=== PATIENT | male | born 1970 | race Caucasian/White ===

== ENCOUNTER 2019-02-15 13:15 | Emergency (ER) | payer OTHER ==
[~2019-02-15] VITALS: Ht 182.9 cm; Wt 90.7 kg
--- NOTE | 2019-02-15 13:20 | NUR ---
ED Nurse Note: Patient walked in to ER c/o abdominal pain which starts from medial and radiates to LLQ 5/10 and N/V since last night. pt aao x4 and ambulatory. skin clean and intact. calm and cooperative. pt is in gown and on hall monitor.
[2019-02-15] MEDS ORDERED: NKM (13:21)
[2019-02-15 13:24] VITALS: BP 152/95
[2019-02-15] MEDS ORDERED: Mylanta II UD 30ml ORAL ONE (13:45)
[2019-02-15] MEDS ORDERED: Dicyclomine HCl 10mg/5ml oral soln ORAL ONE (13:45)
[2019-02-15] MEDS ORDERED: Lidocaine 2% Visc 15ml soln ORAL ONE (13:45)
[2019-02-15 14:30] LABS: APPEARANCE,URINE CLEAR; BILIRUBIN, URINE NEGATIVE (NEGATIVE); COLOR,URINE PALE YELLOW; GLUCOSE, URINE (UA) 4+ (NEGATIVE); KETONES,URINE 3+ (NEGATIVE); LEUKOCYTE ESTERASE ,URINE NEGATIVE (NEGATIVE); NITRITE,URINE NEGATIVE (NEGATIVE); PH,URINE 5 (4.5-8.0); PROTEIN,URINE 1+ (NEGATIVE); UROBILINOGEN,URINE NORMAL MG/DL (0.0-1.0)
[2019-02-15 14:44] LABS: BASOPHILS % (AUTO) 0.4 % (0.0-2.0); EOSINOPHILS % (AUTO) 0.8 % (0.0-3.0); LYMPHOCYTES % (AUTO) 11.6 % (20.0-45.0); MONOCYTES % (AUTO) 2.9 % (1.0-10.0); NEUTROPHILS % (AUTO) 84.2 % (45.0-75.0); PLATELET COUNT 221 K/UL (150-450); RED CELL DISTRIBUTION WIDTH 11.8 % (11.6-14.8); WHITE BLOOD COUNT 14.6 K/UL (4.8-10.8)
[2019-02-15 14:50] LABS: HEMOGLOBIN 18.7 G/DL (14.2-18.0); RED BLOOD COUNT 6.16 M/UL (4.70-6.10)
[2019-02-15 14:51] LABS: HEMATOCRIT 56.3 % (42.0-52.0); MEAN CORPUSCULAR VOLUME 92 FL (80-99)
--- NOTE | 2019-02-15 14:55 | NUR ---
ED Nurse Note: Critical lab result Hgb 18.[address] Vazquez and Dr. Hernandez.
[2019-02-15] MEDS ORDERED: Isovue-300 100ml vial INJ PRN (15:00)
--- NOTE | 2019-02-15 15:00 | NUR ---
ED Nurse Note: Dr. Hernandez at bedside.
[2019-02-15 15:24] VITALS: BP 146/86
--- NOTE | 2019-02-15 15:51 | NUR ---
ED Nurse Note: Chemistry was redrawn and sent to the lab.
--- NOTE | 2019-02-15 16:00 | Emergency Room Report ---
History of Present Illness General Chief Complaint: Abdominal Pain Source: Patient Present Illness HPI 48-year-old male presents ED for evaluation. Complaining of abdominal pain with nausea and vomiting since yesterday. Pain is epigastric, sharp, 8 out of 10, radiating to lower abdomen. Denies fevers or chills. Denies chest pain. Denies any diarrhea. States he does have a history of ulcers. Denies alcohol use. No other aggravating relieving factors. Denies any other associated symptoms Allergies: Coded Allergies: No Known Allergies (Unverified , 02/15/19) Patient History Past Medical History: none Past Surgical History: none Pertinent Family History: none Social History: Denies: smoking, alcohol use, drug use Immunizations: UTD Reviewed Nursing Documentation: PMH: Agreed; PSxH: Agreed Nursing Documentation-PMH Past Medical History: No Stated History Review of Systems All Other Systems: negative except mentioned in HPI Physical Exam Vital Signs Date Time Temp Pulse Resp B/P (MAP) Pulse Ox O2 Delivery O2 Flow Rate FiO2 02/15/19 13:18 98.4 106 18 152/95 (114) 94 Room Air Sp02 EP Interpretation: reviewed, normal General Appearance: no apparent distress, alert, GCS 15, non-toxic Head: normocephalic, atraumatic Eyes: bilateral eye normal inspection, bilateral eye PERRL ENT: hearing grossly normal, normal pharynx, no angioedema, normal voice Neck: full range of motion, supple/symm/no masses Respiratory: chest non-tender, lungs clear, normal breath sounds, speaking full sentences Cardiovascular #1: regular rate, rhythm, no edema Cardiovascular #2: 2+ carotid (R), 2+ carotid (L), 2+ radial (R), 2+ radial (L) , 2+ dorsalis pedis (R), 2+ dorsalis pedis (L) Gastrointestinal: normal bowel sounds, soft, non-distended, no rebound, guarding, tenderness Rectal: deferred Genitourinary: normal inspection, no CVA tenderness Musculoskeletal: back normal, gait/station normal, normal range of motion, non- tender Neurologic: alert, oriented x3, responsive, motor strength/tone normal, sensory intact, speech normal Psychiatric: judgement/insight normal, memory normal, mood/affect normal, no suicidal/homicidal ideation Reflexes: 3+ bicep (R), 3+ bicep (L), 3+ tricep (R), 3+ tricep (L), 3+ knee (R) , 3+ knee (L) Lymphatic: no adenopathy Medical Decision Making Diagnostic Impression: Primary Impression: Pancreatitis Qualified Codes: K85.90 - Acute pancreatitis without necrosis or infection, unspecified ER Course Hospital Course 48-year-old male presents to ED with abdominal pain Differential diagnoses include: BPH, cystitis, pyelonephritis, kidney stone Clinical course Patient placed on stretcher. color television console monitor. After initial history and physical I ordered labs, IV fluids, UA, pain medication and CT scan Labs - noted leukocytosis, Hb/Hct elevated. electrolytes ok. Lipase > 1800 CT abdomen and pelvis - pancreatitis + ? diverticulitis discussed findings with patient. Admission recommended however patient states he wants to leave. Patient states he wishes to go home. Understands the risks of leaving. Patient has competency to make his own decisions. Signed AMA form. I feel this is a highly complex case requiring extensive working including EKG/ Rhythm strip, Xray/CT/US, Blood/urine lab work, repeat exams while in ED, and administration of strong opiates/narcotics for pain control, admission to hospital or close patient follow up. Diagnosis - pancreatitis patient left AMA Labs Test 02/15/19 13:44 02/15/19 14:10 02/15/19 15:50 White Blood Count 14.6 K/UL (4.8-10.8) Red Blood Count 6.16 M/UL (4.70-6.10) Hemoglobin 18.7 G/DL (14.2-18.0) Hematocrit 56.3 % (42.0-52.0) Mean Corpuscular Volume 92 FL (80-99) Mean Corpuscular Hemoglobin 32.0 PG (27.0-31.0) Mean Corpuscular Hemoglobin Concent 35.0 G/DL (32.0-36.0) Red Cell Distribution Width 11.8 % (11.6-14.8) Platelet Count 221 K/UL (150-450) Mean Platelet Volume 9.2 FL (6.5-10.1) Neutrophils (%) (Auto) 84.2 % (45.0-75.0) Lymphocytes (%) (Auto) 11.6 % (20.0-45.0) Monocytes (%) (Auto) 2.9 % (1.0-10.0) Eosinophils (%) (Auto) 0.8 % (0.0-3.0) Basophils (%) (Auto) 0.4 % (0.0-2.0) Urine Color Pale yellow Urine Appearance Clear Urine pH 5 (4.5-8.0) Urine Specific Daphne 1.015 (1.005-1.035) Urine Protein 1+ (NEGATIVE) Urine Glucose (UA) 4+ (NEGATIVE) Urine Ketones 3+ (NEGATIVE) Urine Blood Negative (NEGATIVE) Urine Nitrite Negative (NEGATIVE) Urine Bilirubin Negative (NEGATIVE) Urine Urobilinogen Normal MG/DL (0.0-1.0) Urine Leukocyte Esterase Negative (NEGATIVE) Urine RBC 0 /HPF (0 - 0) Urine WBC 0-2 /HPF (0 - 0) Urine Squamous Epithelial Cells Occasional /LPF Urine Bacteria Occasional /HPF (NONE) Urine Fine Granular Casts 0-2 /LPF (NONE) Sodium Level 130 MMOL/L (136-145) Potassium Level 4.1 MMOL/L (3.5-5.1) Chloride Level 95 MMOL/L (98-107) Carbon Dioxide Level 21 MMOL/L (21-32) Anion Gap 15 mmol/L (5-15) Blood Urea Nitrogen 11 mg/dL (7-18) Creatinine 0.8 MG/DL (0.55-1.30) Estimat Glomerular Filtration Rate > 60 mL/min (>60) Glucose Level 350 MG/DL (74-106) Calcium Level 7.0 MG/DL (8.5-10.1) Total Bilirubin 1.1 MG/DL (0.2-1.0) Direct Bilirubin 0.0 MG/DL (0.0-0.3) Aspartate Amino Transf (AST/SGOT) 6 U/L (15-37) Alanine Aminotransferase (ALT/SGPT) < 6 U/L (12-78) Alkaline Phosphatase 90 U/L (46-116) Total Protein 7.0 G/DL (6.4-8.2) Albumin 3.4 G/DL (3.4-5.0) Globulin 3.6 g/dL Albumin/Globulin Ratio 0.9 (1.0-2.7) Lipase 1907 U/L (73-393) CT/MRI/US Diagnostic Results CT/MRI/US Diagnostic Results : Imaging Test Ordered: CT Head Impression Impression: Inflammatory changes in the left upper quadrant. Main differential considerations include pancreatitis of the pancreatic tail, and acute diverticulitis. Slight swelling of the pancreatic tail, lack of definite diverticula, and distribution of phlegmon is more suggestive of the former, but diverticulitis due to occult diverticular disease is certainly possible. Correlate with clinical and laboratory findings. Last Vital Signs Date Time Temp Pulse Resp B/P (MAP) Pulse Ox O2 Delivery O2 Flow Rate FiO2 02/15/19 15:24 98.6 95 28 146/86 100 Room Air Status: unchanged Disposition: AGAINST MEDICAL ADVICE Condition: Stable Scripts Hydrocodone Bit/Acetaminophen 5-325* (NORCO 5-325*) 1 Each Tablet 1 TAB ORAL Q6H PRN for For Pain, #20 TAB 0 Refills Prov: Neeraj Hernandez MD 02/15/19 Referrals: [facility],REFERRING (PCP) Oscar Vazquez MD Feb 15, 2019 16:00
--- NOTE | 2019-02-15 16:18 | NUR ---
ED Nurse Note: pt ambulated to bathroom with steady gait.
[2019-02-15 16:30] LABS: ANION GAP 15 mmol/L (5-15); BLOOD UREA NITROGEN 11 mg/dL (7-18); CARBON DIOXIDE 21 MMOL/L (21-32); CHLORIDE 95 MMOL/L (98-107); CREATININE 0.8 MG/DL (0.55-1.30); POTASSIUM 4.1 MMOL/L (3.5-5.1); SODIUM 130 MMOL/L (136-145)
--- NOTE | 2019-02-15 16:38 | NUR ---
ED Nurse Note: pt went down for CT scan in stable condition.
[2019-02-15 16:40] LABS: ALANINE AMINOTRANSFERASE < 6 U/L (12-78); ALBUMIN 3.4 G/DL (3.4-5.0); BILIRUBIN,TOTAL 1.1 MG/DL (0.2-1.0)
--- NOTE | 2019-02-15 16:53 | NUR ---
ED Nurse Note: pt came back from CT in stable condition.
--- NOTE | 2019-02-15 17:13 | NUR ---
ED Nurse Note: [facility] CALLED FOR PT REPORT. REPORT GIVEN TO CHARLES CHARGE NURSE. PER CHARGE, RN NEEDS 10 MINUTES BEFORE ACCEPTING PT. WILL TRANSPORT PT AT THAT TIME.
[2019-02-15 17:15] VITALS: BP 132/84
--- NOTE | 2019-02-15 17:18 | NUR ---
ED Nurse Note: PT DOES NOT WISH TO BE ADMITTED. WILL AWAIT RESULTS OF CT BEFORE DECIDING ON LEAVING AMA OR GETTING ADMITTED. [facility] UPDATED.
[2019-02-15 17:19] LABS: ALKALINE PHOSPHATASE 90 U/L (46-116); ASPARTATE AMINO TRANSFERASE 6 U/L (15-37)
[2019-02-15 17:20] LABS: ALBUMIN/GLOBULIN RATIO 0.9 (1.0-2.7)
[2019-02-15] MEDS ORDERED: NORCO 5-325 TA1 EACH ORAL (17:27)
--- NOTE | 2019-02-15 17:27 | Diagnostic Imaging Report ---
Clinical Indication: Abdominal pain which starts from medial and radiates to the left lower quadrant, 5 out of 10, nausea vomiting since the previous night Technique: No oral contrast utilized, per emergency room physician request IV administration nonionic contrast. Venous phase spiral acquisition obtained through the abdomen and pelvis. Multiplanar reconstructions were generated. Total dose length product 692.84 mGycm. CTDIvol(s) 12.1 mGy. Dose reduction achieved using automated exposure control Comparison: none Findings: Inflammatory changes are seen in the left upper quadrant, adjacent to the pancreatic tail and also adjacent to the splenic flexure and proximal descending colon. There are questionably small colonic diverticula in the area, and there is slight wall thickening of the distal splenic flexure. There is slight swelling of the pancreatic tail and equivocal slight lower attenuation of the pancreatic tail as compared to the head and body. Phlegmon is seen tracking caudad along the anterior Gerota's fascia and in the anterior pararenal space. No definite diverticula are identified. No discrete well-defined fluid collections are demonstrated. While the pancreatic tail is slightly lower in attenuation, it nonetheless definitely enhances. No focal parenchymal abnormality demonstrated. A very thin blind ending linear structure occupies the gallbladder fossa. This could conceivably represent a very contracted gallbladder. There is no biliary ductal dilatation. The liver is mildly hypoattenuating. No focal hepatic abnormality demonstrated. The spleen, adrenals, kidneys are all unremarkable. No retroperitoneal or mesenteric mass or adenopathy demonstrated. No renal or ureteral calculi. The bladder is empty, unremarkable. No pelvic mass or adenopathy. The appendix is normal. As mentioned earlier, there are equivocally small colonic diverticula. No small bowel distention. No free intraperitoneal gas. The distal esophagus, stomach, duodenum are unremarkable. The included lung bases demonstrate slight groundglass opacity. The bones are unremarkable. Impression: Inflammatory changes in the left upper quadrant. Main differential considerations include pancreatitis of the pancreatic tail, and acute diverticulitis. Slight swelling of the pancreatic tail, lack of definite diverticula, and distribution of phlegmon is more suggestive of the former, but diverticulitis due to occult diverticular disease is certainly possible. Correlate with clinical and laboratory findings. Contracted gallbladder versus prior cholecystectomy. Correlate with surgical history Mild fatty liver Basilar pulmonary parenchymal groundglass opacities, nonspecific Findings discussed by phone with Dr. Hernandez at the time of interpretation The CT scanner at [facility] is accredited by the [employer] and the scans are performed using protocols designed to limit radiation exposure to as low as reasonably achievable to attain images of sufficient resolution adequate for diagnostic evaluation.
--- NOTE | 2019-02-15 17:28 | NUR ---
ED Nurse Note: pt wants to leave AMA. PEYTON speaking to pt.
--- NOTE | 2019-02-15 17:34 | NUR ---
AMA: After pt speaking to ERMD pt still wishes to go home AMA. ERMD gave dc instruction including to follow with pcp and not to drink alcohol. pt aao x4 and ambulatory with steady gait. iv line and id band removed without complication. pt signed on AMA form with fully understanding of risk of leaving AMA. pt was told to come back or go to nearest hospital for worsening symptoms. pt took all belongings.
--- NOTE | 2019-02-15 17:35 | NUR ---
ED Nurse Note: prescription and lab results were printed and provided.
== END 2019-02-15 17:35 | disposition left against medical advice (07) ==
LOC: EMR 14:44 → UNDOADMIN 16:30 → 3E 16:30 → EDBEDREQ 17:00 → EMR 17:35 → CANBEDREQ 17:45
DX: K85.90 Acute pancreatitis without necrosis or infection, unspecified (principal); D72.829 Elevated white blood cell count, unspecified
CPT/HCPCS: 36415; 74177; 80053; 81003; 82248; 83690; 85025; 96361; 96374; 96375; 99284; J2405; Q9967; S0028